=== PATIENT | female | born 1965 | race Two or more races ===

== ENCOUNTER → 2025-04-13 | Outpatient (CLI) | payer MEDICAID, SELFPAY ==
--- NOTE | 2025-04-13 15:23 | XR_ITS ---
Examination: PA lateral chest 2 views TECHNIQUE: Upright PA lateral chest 2 views Date and time: April 13, 2025, 1542 hours, comparison January 28, 2024 INDICATIONS: Shortness of breath beginning one month ago. FINDINGS: Mild heart failure Moderate enlargement cardiac contour. Prominent vascular congestion. Early septal edema at the lung bases with fluid in the fissures on the lateral view IMPRESSION: Early heart failure
== END | disposition home or self-care (01) ==
LOC: SDIM 15:11
PROVIDERS: PCP Specialist; Referring Provider Specialist; Visit Provider Specialist
DX: I50.9 Heart failure, unspecified (principal)
CPT/HCPCS: 71046

== ENCOUNTER 2025-04-14 16:05 | Inpatient (IN) | payer MEDICAID, SELFPAY ==
[2025-04-14 16:05] VITALS: BMI 36.8
[2025-04-14 16:48] VITALS: BP 196/102; BP 199/88; PULSE 87; RESP 20; TEMP 37.1; O2SAT 98
--- NOTE | 2025-04-14 16:52 | EKG_ITS ---
[facility] Test Date: 2025-04-14 Pat Name: BEAN TRUONG Department: Room: - Gender: Female [employer] Director: : [id number] Requested By: Curly Rothman (THIAGO) Order Number: [id number] Reading MD: Curly Rothman (TRUST ADMINISTRATIVE ASSISTANT) Measurements Intervals Haines Rate: 77 P: 30 WA: 147 QRS: 27 QRSD: 79 T: 78 QT: 391 QTc: 443 Interpretive Statements SINUS RHYTHM POSSIBLE RIGHT VENTRICULAR CONDUCTION DELAY [RSR (QR) IN V1/V2] NONSPECIFIC ST & T-WAVE ABNORMALITY Compared to ECG 03/07/2020 11:04:37 T-wave abnormality now present /store/S0/[id number].pdf
--- NOTE | 2025-04-14 16:52 | XR_ITS ---
Examination: PA lateral chest 2 views FINDINGS: Upright PA and lateral chest 2 views Date and time: April 14, 2025, 1722 hours, comparison April 13, 2025 INDICATIONS: Chest pain beginning 2 days ago. FINDINGS: Mild CHF, slightly progressed compared to the prior study Moderate enlargement cardiac contour with prominent vascular congestion and perihilar edema IMPRESSION: Worsening CHF compared with April 13, 2025
--- NOTE | 2025-04-14 16:53 | EDRME_ITS ---
Rapid Medical Screening Exam [facility] Arrival date/time: 04/14/25 16:05 59-year-old female with medical history significant for dialysis presents to the Emergency Department for complaint of shortness of breath Chief Complaint: Shortness of Breath/Dyspnea Vital signs: Vital Signs Temperature 98.8 F 04/14/25 16:48 Pulse Rate 87 04/14/25 16:48 Respiratory Rate 20 04/14/25 16:48 Blood Pressure 196/102 H 04/14/25 16:48 Pulse Oximetry (%) 98 04/14/25 16:48 Oxygen Delivery Method Room Air 04/14/25 16:48
[2025-04-14 18:22] LABS: Basophils # (Auto) 0.1 Thou/mm3 (0.0-0.2); Basophils % (Auto) 1 % (0-2.5); Eosinophils # (Auto) 0.6 Thou/mm3 (0.0-0.5); Eosinophils % (Auto) 8 % (0-10); Hematocrit 32.2 % (36.0-46.0); Hemoglobin 10.7 g/dL (12.0-16.0); Immature Granulocytes Auto 0.04 Thou/mm3 (0.00-0.00); Lymphocytes # (Auto) 1.7 Thou/mm3 (1.0-4.8); Lymphocytes % (Auto) 22 % (10-50); Mean Corpuscular HGB Conc 33.2 g/dl (31.0-37.0); Mean Corpuscular Hemoglobin 32.9 pg (25.0-35.0); Mean Corpuscular Volume 99 fL (80-100); Monocytes # (Auto) 0.5 Thou/mm3 (0.0-0.8); Monocytes % (Auto) 7 % (0-12); Neutrophils # (Auto) 4.7 Thou/mm3 (1.8-7.7); Neutrophils % (Auto) 62 % (37-80); Nucleated Red Blood Cell # 0.04 Thou/mm3 (0.00-0.00); Nucleated Red Blood Cell % 1 /100 WBC (0); Platelet Count 156 Thou/mm3 (140-440); RDW Standard Deviation 46.8 fL (36.4-46.3); Red Blood Count 3.25 Miln/mm3 (4.00-5.20); White Blood Count 7.6 Thou/mm3 (3.6-11.0)
[2025-04-14 18:31] LABS: INR 1.2 (0.9-1.3); Partial Thromboplastin Time 25.6 Seconds (22.0-36.0); Prothrombin Time 12.6 Seconds (9.0-12.2)
[2025-04-14 18:33] LABS: Alanine Aminotransferase 34 U/L (10-49); Albumin, Serum 4.3 gm/dL (3.5-5.0); Albumin/Globulin Ratio 1.4 (1.2-2.2); Alkaline Phosphatase 185 U/L (46-116); Anion Gap 12 (7-16); Aspartate Amino Transferase 33 U/L (0-34); BUN/Creatinine Ratio 6 Ratio (12-20); Bilirubin,Total 0.3 mg/dL (0.3-1.2); Blood Urea Nitrogen 38 mg/dL (9-23); Calcium 10.2 mg/dL (8.3-10.6); Calcium (Corrected) 10.2 mg/dL (8.5-10.1); Carbon Dioxide 27.6 mMol/L (20.0-31.0); Chloride 99 mMol/L (98-107); Creatinine (Component) 6.8 mg/dL (0.6-1.3); Estimated Creatinine Clearance 10.4 mL/min (>60); Globulin 3.1 gm/dL (2.3-3.5); Glucose 161 mg/dL (74-106); Magnesium 2.4 mg/dL (1.6-2.6); Osmolality,Calculated 289 (275-295); Potassium 5.1 mMol/L (3.4-5.1); Sodium 139 mMol/L (136-145); Total Protein 7.4 gm/dL (5.7-8.2); Troponin I 0.020 ng/mL (0.0-0.045); eGFR 7 See Note
[2025-04-14 18:44] LABS: B-Type Natriuretic Peptide 3046 pg/mL (0-100)
--- NOTE | 2025-04-14 21:17 | ECHO_ITS ---
Transthoracic Echo Report Ht (in): 64 Wt (lb): 215 Exam Location: Echo Lab Status: Emergency Shoe Fitter: Kelly Ang Indications: Procedure Performed: BP: 162 / 78 HR: 74 Technical Quality: Poor MEASUREMENTS (Male / Female) Normal Values 2D ECHO LV Diastolic Diameter PLAX 4.9 cm 4.2 - 5.9 / 3.9 - 5.3 cm LV Systolic Diameter PLAX 3.0 cm IVS Diastolic Thickness 0.8 cm 0.6 - 1.0 / 0.6 - 0.9 cm LVPW Diastolic Thickness 1.2 cm 0.6 - 1.0 / 0.6 - 0.9 cm LV Relative Wall Thickness 0.4 LVOT Diameter 1.9 cm Aortic Root Diameter 2.8 cm LV Ejection Fraction MOD BP 65.9 % >= 55 % LV Cardiac Index MOD BP 2413.0 cm?/min?m? LV Ejection Fraction MOD 4C 63.3 % LV Cardiac Index MOD 4C 1933.1 cm?/min?m? LV Ejection Fraction 4C AL 65.2 % LV Cardiac Index 4C AL 2081.3 cm?/min?m? LV Ejection Fraction MOD 2C 64.5 % LV Cardiac Index MOD 2C 2516.5 cm?/min?m? LV Ejection Fraction 2C AL 65.9 % LV Cardiac Index 2C AL 2674.6 cm?/min?m? LA Volume Index 26.7 cm?/m? 16 - 28 cm?/m? Ascending Aorta Diameter 2.6 cm M-MODE Aortic Root Diameter MM 2.3 cm LA Systolic Diameter MM 5.4 cm LA Ao Ratio MM 2.3 AV Cusp Separation MM 1.3 cm DOPPLER AV Peak Velocity 191.0 cm/s AV Peak Gradient 14.6 mmHg AV Mean Gradient 8.0 mmHg AV Velocity Time Integral 42.6 cm LVOT Peak Velocity 93.2 cm/s LVOT Peak Gradient 3.5 mmHg LVOT Velocity Time Integral 20.8 cm LVOT Cardiac Index 2035.8 cm?/min?m? AV Area Cont Eq vti 1.4 cm? AV Area Cont Eq pk 1.4 cm? MV Area PHT 4.9 cm? Mitral E Point Velocity 143.0 cm/s Mitral A Point Velocity 37.9 cm/s Mitral E to A Ratio 3.8 LV E' Lateral Velocity 5.8 cm/s Mitral E to LV E' Lateral Ratio 24.6 LV E' Septal Velocity 4.4 cm/s Mitral E to LV E' Septal Ratio 32.3 TR Peak Velocity 385.5 cm/s TR Peak Gradient 59.4 mmHg PV Peak Velocity 122.0 cm/s PV Peak Gradient 6.0 mmHg FINDINGS Left Ventricle Normal left ventricular size, wall thickness, systolic function with no obvious regional wall motion abnormalities. Normal left ventricular diastolic filling pattern for age. The ejection fraction is visually estimated at 55-60 %. Right Ventricle The right ventricle is normal in size and systolic function. The estimated right ventricular systolic pressure, 45mmHg. RAP 10 Left Atrium The left atrium is normal by two-dimensional, color flow and Doppler imaging with no structural abnormalities, no thrombus formation present. Right Atrium The right atrium is normal by two-dimensional imaging, color flow and Doppler imaging with no structural abnormalities, no thrombus formation present. Atrial Septum The interatrial septum appears normal with no evidence of a shunt. Aorta The aorta is normal by two-dimensional, color flow and Doppler interrogation. Mitral Valve Trace mitral regurgitation. Mild mitral annular calcification. Aortic Valve Sclerosis of the right coronary cusp. Tricuspid Valve The tricuspid valve is normal by two-dimensional, color flow and Doppler interrogation. There is mild to moderate tricuspid valve regurgitation. Pulmonic Valve Trivial pulmonic valve regurgitation. Vessels Less than 50% respiratory change in dimension of the inferior vena cava abnormal. Pericardium The pericardium is normal by two-dimensional imaging. There is no significant pericardial effusion. CONCLUSIONS Indication: Dyspnea Normal LV size and wall thickness. Normal left ventricular diastolic filling pattern for age. Estimated at 55-60 %. The RV is normal in size and systolic function. The estimated RVSP, 45 mmHg. RAP 1 Trace MR. Mild MAC. Sclerosis of the right coronary cusp. No pericardial effusion Mild TR. Trivial PI. Less than 50% respiratory change in dimension of the IVC abnormal. Arline Skaggs (Electronically Signed) Final Date: 17 April 2025 09:03
--- NOTE | 2025-04-14 21:19 | PD.EDSOB ---
ED SOB =RME/HPI General Chief Complaint: Shortness of Breath/Dyspnea Stated Complaint: SENT BY PMD FOR HEART FAILURE Time Seen by Provider: 04/14/25 18:07 Source: patient and family Arrival date/time: 04/14/25 16:05 Mode of arrival: wheelchair Limitations: no limitations RME / HPI RME / HPI Narrative: Patient is a 59-year-old female with a past medical history of ESRD, she has dialysis every Friday, Friday, and Friday. She has not missed any runs. She also has a history of diabetes mellitus, HTN, and asthma. She was admitted here last year for a significant pericardial effusion, 2 L of fluid were drained at that time. Patient had an echo in January 2024 which revealed ejection fraction of 65%- 70% without any significant wall motion abnormalities.. She now presents to the ED with chief complaint of shortness of breath as previously gotten worse for the past 4 weeks. Related Data Home Medications ?Medication ?Instructions ?Recorded ?Confirmed calcium acetate 667 mg tablet 1,334 mg PO TIDWM 03/07/20 01/28/24 ferrous sulfate 325 mg (65 mg 325 mg PO QDAY 01/27/24 01/27/24 iron) tablet (iron) cinacalcet 30 mg tablet 30 mg PO QDAY 01/29/24 01/29/24 ferrous sulfate 325 mg (65 mg 325 mg PO QDAY 01/29/24 01/29/24 iron) tablet hydralazine 25 mg tablet 25 mg PO TID 01/29/24 01/29/24 labetalol 200 mg tablet 200 mg PO BID 01/29/24 01/29/24 losartan 100 mg tablet 100 mg PO QDAY 01/29/24 01/29/24 nifedipine 60 mg tablet,extended 60 mg PO QDAY 01/29/24 01/29/24 release Allergies Allergy/AdvReac Type Severity Reaction Status Date / Time No Known Allergies Allergy Verified 04/14/25 16:07 Review of Systems Review of Systems Systems Reviewed: All systems reviewed, normal except as documented ED Exam General Limitations: Present no limitations General appearance: Present alert and in no apparent distress Head Head exam: Present atraumatic Eye Eye exam: Present normal appearance, PERRL and EOMI ENT ENT exam: Present normal exam, normal oropharynx and mucous membranes moist Neck Neck exam: Present normal inspection, full ROM and trachea midline Chest Chest inspection: Present normal inspection and symmetric chest wall rise Respiratory Respiratory exam: Present normal lung sounds bilaterally Cardiovascular Cardiovascular exam: Present regular rate, normal rhythm and +S2 Abdominal Exam Abdominal exam: Present soft Extremities Exam Extremities exam: Present normal inspection and full ROM; Absent pedal edema Back Exam Back exam: Present normal inspection and full ROM Neurological Exam Neurological exam: Present alert and oriented X3 Psychiatric Psychiatric exam: Present normal affect and normal mood Skin Skin exam: Present warm, dry, intact and normal color Course Quality Measures none Orders Category Date Time Status COVID-19 Screening Questionnaire NOW Care 04/14/25 21:46 Active Decision to Admit X1 Care 04/14/25 21:46 Active EKG (ED ONLY) *Do not use* NOW Care 04/14/25 16:52 Completed CA echo doppler complete Stat Exams 04/14/25 21:17 Ordered EKG (ED Only) Stat Exams 04/14/25 16:52 Draft XR chest 2V Stat Exams 04/14/25 16:52 Completed B-Type Natriuretic Peptide Stat Lab 04/14/25 17:17 Completed CBC Stat Lab 04/14/25 17:17 Completed Comprehensive Metabolic Panel Stat Lab 04/14/25 17:17 Completed Magnesium Stat Lab 04/14/25 17:17 Completed Partial Thromboplastin Time Stat Lab 04/14/25 17:17 Completed Prothrombin Time with INR Stat Lab 04/14/25 17:17 Completed Troponin I Stat Lab 04/14/25 17:17 Completed Morphine Inj Med 04/14/25 21:48 Discontinued 4 mg IVP X1 ONE Nitroglycerin Oint 2% [Nitro-paste Oint 2%] Med 04/14/25 21:48 Discontinued 2 inch TOP X1 ONE hydrALAZINE INJ [Apresoline Inj] Med 04/14/25 21:27 Discontinued 20 mg IVP X1 ONE Vital Signs Vital signs: Vital Signs Temperature 98.8 F 04/14/25 16:48 Pulse Rate 87 04/14/25 16:48 Respiratory Rate 20 04/14/25 16:48 Blood Pressure 196/102 H 04/14/25 16:48 Pulse Oximetry (%) 98 04/14/25 16:48 Oxygen Delivery Method Room Air 04/14/25 16:48 Shortness of Breath / Dyspnea MDM Narrative MDM Narrative:: Dr. Cohen with cardiology was called at approximately 20 1:20 PM. Message was left requesting return call. Patient's long chain quiller tender, Dr. Alas was contacted at 21:30 PM, patient's presentation and test results were discussed. We will admit to medicine and she will follow, consider dialysis tomorrow. Hospitalist was paged and the case was discussed. We are currently working on bringing blood pressure down and I would like to give nitroglycerin however we cannot initiate that in that side of department due to monitoring. We will try to bring her to the main side of the ER and consider nitroglycerin once that is performed. I do believe the patient needs to be admitted to the hospital. Hospitalist services will evaluate her further. Patient data External records reviewed:: None Clinical information provided by:: patient Social determinants that could affect healthcare access:: none Patient has the following chronic illnesses:: End-stage renal disease, CHF, hypertension, diabetes How is presenting disease/condition affected by chronic disease/condition?: no chronic disease Evaluation data The following diagnostics were reviewed and interpreted by me:: lab results, radiology exam(s) and EKG tracing(s) Lab and/or radiology exams considered but not ordered:: n/a Interpretation Summary: n/a Medications / Prescriptions Medications or Prescriptions considered but not ordered:: n/a Medication administrations:: Medication Administration History Acetaminophen (Acetaminophen 325 Mg Tablet) 650 mg PO Q6H PRN PRN Reason: Fever >100.4 or pain 1-3 Stop: 05/14/25 22:15 Albuterol/Ipratropium (Albuterol/Ipratropium (Duoneb) Rt Hiwot 3 Ml Nebu) 3 ml INH Q2HR PRN PRN Reason: SHORTNESS OF BREATH OR WHEEZE Stop: 05/14/25 22:15 Docusate Sodium (Docusate Sod 100 Mg Capsule) 100 mg PO QDAY PRN; Protocol PRN Reason: CONSTIPATION Stop: 05/14/25 22:15 Heparin Sodium (Porcine) (Heparin Sod Inj 5000 Unit/Ml Vial) 5,000 unit SC Q12HR STEPHAN Stop: 04/29/25 08:59 Ondansetron HCl (Ondansetron Inj 2 Mg/Ml Inj 2 Ml) 4 mg IVP Q6H PRN; Protocol PRN Reason: NAUSEA OR VOMITING Stop: 05/14/25 22:15 Last Admin: 04/14/25 23:03 Dose: 4 mg Documented By: ALEXANDER Sennosides (Senna Tablet) 1 tab PO QDAY PRN; Protocol PRN Reason: constipation Stop: 05/14/25 22:15 Tramadol HCl (Tramadol Hcl 50 Mg Tablet) 50 mg PO Q6HR PRN PRN Reason: PAIN SCALE 4-10(Mod-Sev Stop: 04/19/25 22:15 Discontinued Medications Hydralazine HCl (Hydralazine Inj 20 Mg/Ml Vial) 20 mg IVP X1 ONE Stop: 04/14/25 21:28 Morphine Sulfate (Morphine Sulf Inj 10 Mg/Ml Vial) 4 mg IVP X1 ONE Stop: 04/14/25 21:49 Last Admin: 04/14/25 22:29 Dose: 4 mg Documented By: ALEXANDER Nitroglycerin (Nitroglycerin Oint 2% 1 Inch Packet) 2 inch TOP X1 ONE Stop: 04/14/25 21:49 Last Admin: 04/14/25 21:58 Dose: 2 inch Documented By: ALEXANDER Tramadol HCl (Tramadol Hcl 50 Mg Tablet) 50 mg PO Q6HR PRN PRN Reason: PAIN SCALE 4-10(Mod-Sev Stop: 04/19/25 22:15 see above Consultations Consultation(s) initiated? (list below): No Diagnosis Shortness of Breath Differential Diagnosis: acute exacerbation of chronic obstructive airways disease, congestive heart failure, community acquired pneumonia and asthma with exacerbation Most likely diagnosis given after review of the tests above:: CHF, end-stage renal disease Admission Indicated Admission indicated?: indicated Admission Request Was there a request for admission?: Yes Admission Attestation Admission request attestation: Discussed case with [] from Hospitalist service regarding admission. Discussed patients ED course, exam findings, labs, and radiology results. The Hospitalist [agrees,declines] to accept the patient for admission. Disposition Plan Disposition Plan: Admit Discharge Plan Plan Patient Disposition: Admit Acute Care w/in Hospital Problem List Clinical Impression: CHF (congestive heart failure), Renal failure
[2025-04-14 21:58] VITALS: BP 247/118; PULSE 84
[2025-04-14] MEDS: NITROGLYCERIN OINT 2% 1 INCH PACKET 2 INCH TOP (21:58)
[2025-04-14] MEDS: MORPHINE SULF INJ 10 MG/ML VIAL 4 MG IVP (22:29)
[2025-04-14 22:52] VITALS: BP 197/120; PULSE 76; RESP 16; TEMP 36.6; O2SAT 95
[2025-04-14] MEDS: ONDANSETRON INJ 2 MG/ML INJ 2 ML 4 MG IVP (23:03)
[2025-04-14 23:38] VITALS: BP 189/113; PULSE 74
[2025-04-14] MEDS: hydrALAZINE INJ 20 MG/ML VIAL 10 MG IVP (23:38)
[2025-04-14 23:44] VITALS: BMI 39.3
[2025-04-15] VITALS (27 sets, daily range): BP systolic 131–192; BP diastolic 66–94; PULSE 68–869; RESP 14–89; TEMP 36.1–37; O2SAT 91–100; BMI 38.4; BMI 15.0
--- NOTE | 2025-04-15 00:21 | PD.RESHP ---
Documentation for date of: 04/15/25 HPI History of Present Illness Chief complaint: SOB x1 month History of present illness: 59 y/o F with PMHx significant for ESRD (M/W/F), DM, HTN, asthma presents to ED from home with cheif complaint of SOB x1 month. Patient reports that over past month she has had progressive worsening dyspnea on exertion, orthopnea. She also reports that her legs been swelling more frequently. Patient states she had similar symptoms approximately 1 year ago, but presentation to ED was found to have significant pericardial effusion requiring pericardiocentesis. Went to PCP and received chest x-ray, PCP sent patient to ED due to concern of similar presentation. Patient denies fever, chills, chest pain, nausea, vomiting, abdominal pain, dysuria. ED COURSE: Labs significant for: WBC 7.6, hemoglobin 10.7. Potassium 5.1. BNP 3000. Imaging significant for: EKG showing sinus rhythm. Chest x-ray showing vascular congestion with signs of pulmonary edema. Patient received nitroglycerin topical due to significant high blood pressure. SBP consistently > 220. Vitals otherwise stable, patient saturating well on room air. PMH: ESRD, DM, HTN, asthma PSH: Cholecystectomy SH: Denies tobacco or illicit drug use. Reports extremely rare alcohol use. Allergies:?NKDA Medications: Hydralazine, losartan, nifedipine, Lasix Review of Systems Review of Systems Systems Reviewed: All systems reviewed, normal except as documented Past Medical History Past Medical History Comments PMH COMMENT: PMH: ESRD, DM, HTN, asthma PSH: Cholecystectomy SH: Denies tobacco or illicit drug use. Reports extremely rare alcohol use. Allergies:?NKDA Medications: Hydralazine, losartan, nifedipine, Lasix Exam Vital Signs Temp Pulse Resp BP Pulse Ox O2 Del Method 98.6 F 72 17 192/85 H 100 Room Air 04/15/25 00:20 04/15/25 00:20 04/15/25 00:20 04/15/25 00:20 04/15/25 00:20 04/15/25 00:20 Narrative Exam PE: Gen: Well-developed and well-nourished. HEENT: NCAT, PERRLA, EOMI, MMM, anicteric conjunctivae. CVS: normal S1 and S2. RRR. No M/R/G. Resp: CTA B/L. No rhonchi, rales, crackles or wheezing. Abd: soft, non-tender, non-distended. BS+ in all 4 quadrants. MSK: Good ROM in BUE & BLE. No edema or rash. Left upper arm fistula. Neuro: CN II-XII grossly intact. Strength 5/5 in BUE & BLE. Alert and oriented x3. Psych: appropriate mood and affect. Results: Labs 04/14/25 17:17 04/14/25 17:17 Labs: Short CBC 04/14/25 Range/Units 17:17 WBC 7.6 (3.6-11.0) Thou/mm3 Hgb 10.7 L (12.0-16.0) g/dL Hct 32.2 L (36.0-46.0) % Plt Count 156 (140-440) Thou/mm3 BMP 04/14/25 17:17 Sodium 139 Potassium 5.1 Chloride 99 Carbon Dioxide 27.6 BUN 38 H Creatinine 6.8 H* Glucose 161 H Calcium 10.2 Cardiac Enzymes 04/14/25 Range/Units 17:17 Troponin I 0.020 (0.0-0.045) ng/mL Liver Function 04/14/25 Range/Units 17:17 Total Bilirubin 0.3 (0.3-1.2) mg/dL AST 33 (0-34) U/L ALT 34 (10-49) U/L Alkaline Phosphatase 185 H (46-116) U/L Albumin 4.3 (3.5-5.0) gm/dL Quality Measures Quality Measures VTE prophylaxis Medications Home Medications and Allergies Home Medications ?Medication ?Instructions ?Recorded ?Confirmed ?Type calcium acetate 667 mg tablet 1,334 mg PO TIDWM 03/07/20 01/28/24 History ferrous sulfate 325 mg (65 mg 325 mg PO QDAY 01/27/24 01/27/24 History iron) tablet (iron) cinacalcet 30 mg tablet 30 mg PO QDAY 01/29/24 01/29/24 History ferrous sulfate 325 mg (65 mg 325 mg PO QDAY 01/29/24 01/29/24 History iron) tablet hydralazine 25 mg tablet 25 mg PO TID 01/29/24 01/29/24 History labetalol 200 mg tablet 200 mg PO BID 01/29/24 01/29/24 History losartan 100 mg tablet 100 mg PO QDAY 01/29/24 01/29/24 History nifedipine 60 mg tablet,extended 60 mg PO QDAY 01/29/24 01/29/24 History release Allergies Allergy/AdvReac Type Severity Reaction Status Date / Time No Known Allergies Allergy Verified 04/14/25 16:07 Visit Medications Acetaminophen (Acetaminophen 325 Mg Tablet) 650 mg PO Q6H PRN PRN Reason: Fever >100.4 or pain 1-3 Stop: 05/14/25 22:15 Albuterol/Ipratropium (Albuterol/Ipratropium (Duoneb) Rt Hiwot 3 Ml Nebu) 3 ml INH Q2HR PRN PRN Reason: SHORTNESS OF BREATH OR WHEEZE Stop: 05/14/25 22:15 Docusate Sodium (Docusate Sod 100 Mg Capsule) 100 mg PO QDAY PRN; Protocol PRN Reason: CONSTIPATION Stop: 05/14/25 22:15 Heparin Sodium (Porcine) (Heparin Sod Inj 5000 Unit/Ml Vial) 5,000 unit SC Q12HR STEPHAN Stop: 04/29/25 08:59 Ondansetron HCl (Ondansetron Inj 2 Mg/Ml Inj 2 Ml) 4 mg IVP Q6H PRN; Protocol PRN Reason: NAUSEA OR VOMITING Stop: 05/14/25 22:15 Last Admin: 04/14/25 23:03 Dose: 4 mg Sennosides (Senna Tablet) 1 tab PO QDAY PRN; Protocol PRN Reason: constipation Stop: 05/14/25 22:15 Tramadol HCl (Tramadol Hcl 50 Mg Tablet) 50 mg PO Q6HR PRN PRN Reason: PAIN SCALE 4-10(Mod-Sev Stop: 04/19/25 22:15 Discontinued Medications Hydralazine HCl (Hydralazine Inj 20 Mg/Ml Vial) 20 mg IVP X1 ONE Stop: 04/14/25 21:28 Hydralazine HCl (Hydralazine Inj 20 Mg/Ml Vial) 10 mg IVP X1 ONE Stop: 04/14/25 23:33 Last Admin: 04/14/25 23:38 Dose: 10 mg Morphine Sulfate (Morphine Sulf Inj 10 Mg/Ml Vial) 4 mg IVP X1 ONE Stop: 04/14/25 21:49 Last Admin: 04/14/25 22:29 Dose: 4 mg Nitroglycerin (Nitroglycerin Oint 2% 1 Inch Packet) 2 inch TOP X1 ONE Stop: 04/14/25 21:49 Last Admin: 04/14/25 21:58 Dose: 2 inch Tramadol HCl (Tramadol Hcl 50 Mg Tablet) 50 mg PO Q6HR PRN PRN Reason: PAIN SCALE 4-10(Mod-Sev Stop: 04/19/25 22:15 Assessment & Plan Plan 59 y/o F with PMHx significant for ESRD (M/W/F), DM, HTN, asthma presents to ED from home with cheif complaint of SOB x1 month, admitted for new onset CHF versus pericardial effusion. #Progressive worsening shortness of breath #New onset CHF versus pericardial effusion Patient has had progressive worsening shortness of breath, dyspnea on exertion, orthopnea x 1 month. Patient also notes her legs have been swelling more frequently. On exam patient saturating well on room air. Patient was laid flat, continued to saturate well during exam. No JVD, no edema, no crackles on auscultation. Chest x-ray shows vascular congestion with pulmonary edema. BNP 3200. - Cardiology consulted, appreciate recommendations - Echo ordered, follow-up - Telemonitoring with O2 saturations - PT eval #Hypertensive emergency #Hypertension Patient history as stated. In ED, patient blood pressure consistently greater than 200 systolic. Highest BP 247/118. Patient took nitro, 20 mg hydralazine, plus additional 10 mg hydralazine. Patient complains of shortness of breath, BNP elevated at 3200. Chest x-ray showing basilar congestion with pulmonary edema. After hydralazine, patient's blood pressure decreased to 187/94. - Hold home antihypertensives given rapid decrease in blood pressure - Monitor blood pressure, goal 25% reduction in 24 hours - Resume home medication when appropriate #ESRD (M/W/F) Patient history as stated. Patient with compliant with all dialysis sessions. Follows with toll testboard worker Dr Rizo. - Nephrology consulted for management of dialysis - Dialysis per patient's usual schedule - Renally dose meds as appropriate #Asthma Patient has history of asthma, not currently on active treatment - DuoNebs as needed #DM, unconfirmed Patient has history of diabetes per chart review, not currently on active medication. A1c 5.4 as of 01/28/2024. - A1c ordered, follow-up - Initiate ISS if appropriate DVT prophylaxis: Heparin GI prophylaxis: None Diet: Cardiac/renal Lines: Peripheral IV Code status: DNR/DNI Plan of care discussed with attending Dr. Brennan. Marcos Portillo MD PGY?2 Attending Provider Attestation/Addendum I have examined the patient, reviewed labs and imaging findings, discussed the case with the resident(s), and reviewed entered orders. I agree with the plan of care as outlined in this note, with these additional summaries/recommendations: After examination of the patient and review of the clinical data, I feel that this patient needs admission to the hospital for further treatment and evaluation. Patient is a 59-year-old female with a medical history of end-stage renal disease on hemodialysis via LUE AV fistula, diabetes mellitus type 2, primary hypertension, asthma, dyslipidemia, AOCD, and pericardial effusion presents to [facility] emergency department on 04/14/2025 with chief complaint of shortness of breath. Patient and patient's daughter seen at bedside. Patient endorses worsening shortness of breath for 1 month and has became so severe she decided to come to the emergency room. Chest x-ray shows moderate enlargement of cardiac contour with prominent vascular congestion and perihilar edema. BNP 3046. Trace lower extremity edema. Patient diagnosed with fluid overload most likely secondary to new onset CHF versus return of pericardial effusion versus ESRD versus hypertensive emergency versus least likely asthma exacerbation. Patient follows cardiology Dr. Diana. Consult in-house cardiology, recommendations appreciated. Order transthoracic echocardiogram. Weight 97.522. Fluid restriction. Strict I's and O's. Per patient she makes minimal urine and we will initiate inpatient hemodialysis for preload reduction. Patient does have a history of a pericardial effusion and had approximately 2 L of serosanguineous fluid drained on prior admission. Fluid analysis revealed transudative effusion most likely secondary to ESRD. If echocardiogram confirms recurrence of pericardial effusion then she may require pericardial drain or possibly evaluation for pericardial window. No evidence of cardiac tamponade at this time. Consult in-house nephrology, recommendations appreciated. If echocardiogram confirms CHF then we will initiate goal-directed medical therapy. Patient also diagnosed with hypertensive urgency/emergency. Unclear if shortness of breath is from blood pressure at this time. Still awaiting home medication reconciliation although patient only appears to be taking ramipril. Troponin WNL. As needed IV antihypertensives. We will continue to adjust antihypertensive regimen as needed. Home MDIs and nebulized albuterol as needed for history of asthma. Start insulin sliding scale for diabetes mellitus type 2 with Accu-Cheks. Order A1c. Target blood sugar of 140-180 while hospitalized. Patient has history of anemia of chronic disease and appears at baseline. Patient's daughter reports patient has had intermittent dysphagia for years although has not yet seek referral to gastroenterology. We will monitor how patient does on diet. Okay to resume home hydroxyzine for anxiety as needed. Patient and patient's daughter updated on the plan. All questions answered to satisfaction. Please see residents note for additional details and management. Dr. Anu MD
[2025-04-15] MEDS: ACETAMINOPHEN 325 MG TABLET 650 MG PO ×2 (00:55→10:01)
--- NOTE | 2025-04-15 03:02 | PC.NURSE ---
Dr. Portillo notified regarding patient regarding patient now wanting to be a full code and not a DNR. stated he is doing an admission but would try to come up to talk to the patient but if he does not make it, he will let the day team know. This RN will follow up soon about the code status change that patient is requesting. Dr. Portillo also notified regarding blood sugar of 212; he said he would put something in. This RN also updated him on oxygen saturation between 89-91% and now at 98% on 2 liters of oxgyen via nasal cannula and the need for an order.
[2025-04-15] MEDS: INSULIN LISPRO (AdmeLOG) 1 UNIT/0.01 ML UNIT SC ×3 (03:49→17:01)
[2025-04-15 06:08] LABS: Basophils # (Auto) 0.0 Thou/mm3 (0.0-0.2); Basophils % (Auto) 0 % (0-2.5); Eosinophils # (Auto) 0.6 Thou/mm3 (0.0-0.5); Eosinophils % (Auto) 7 % (0-10); Hematocrit 29.6 % (36.0-46.0); Hemoglobin 9.7 g/dL (12.0-16.0); Immature Granulocytes Auto 0.04 Thou/mm3 (0.00-0.00); Lymphocytes # (Auto) 1.3 Thou/mm3 (1.0-4.8); Lymphocytes % (Auto) 15 % (10-50); Mean Corpuscular HGB Conc 32.8 g/dl (31.0-37.0); Mean Corpuscular Hemoglobin 32.4 pg (25.0-35.0); Mean Corpuscular Volume 99 fL (80-100); Monocytes # (Auto) 0.5 Thou/mm3 (0.0-0.8); Monocytes % (Auto) 6 % (0-12); Neutrophils # (Auto) 6.0 Thou/mm3 (1.8-7.7); Neutrophils % (Auto) 71 % (37-80); Nucleated Red Blood Cell # 0.00 Thou/mm3 (0.00-0.00); Nucleated Red Blood Cell % 0 /100 WBC (0); Platelet Count 131 Thou/mm3 (140-440); RDW Standard Deviation 47.0 fL (36.4-46.3); Red Blood Count 2.99 Miln/mm3 (4.00-5.20); White Blood Count 8.4 Thou/mm3 (3.6-11.0)
[2025-04-15 06:41] LABS: INR 1.2 (0.9-1.3); Partial Thromboplastin Time 23.3 Seconds (22.0-36.0); Prothrombin Time 12.6 Seconds (9.0-12.2)
[2025-04-15 06:44] LABS: Glucose Estimated Average 157 mg/dL (80-131); Hemoglobin A1C 7.1 % Hgb (4.8-6.0)
[2025-04-15 07:11] LABS: Alanine Aminotransferase 36 U/L (10-49); Albumin, Serum 4.0 gm/dL (3.5-5.0); Albumin/Globulin Ratio 1.2 (1.2-2.2); Alkaline Phosphatase 170 U/L (46-116); Anion Gap 14 (7-16); Aspartate Amino Transferase 32 U/L (0-34); BUN/Creatinine Ratio 6 Ratio (12-20); Bilirubin,Total 0.3 mg/dL (0.3-1.2); Blood Urea Nitrogen 49 mg/dL (9-23); Calcium 9.7 mg/dL (8.3-10.6); Calcium (Corrected) 9.7 mg/dL (8.5-10.1); Carbon Dioxide 25.7 mMol/L (20.0-31.0); Chloride 98 mMol/L (98-107); Creatinine (Component) 7.8 mg/dL (0.6-1.3); Estimated Creatinine Clearance 8.2 mL/min (>60); Globulin 3.4 gm/dL (2.3-3.5); Glucose 196 mg/dL (74-106); Magnesium 2.7 mg/dL (1.6-2.6); Osmolality,Calculated 293 (275-295); Phosphorous 5.9 mg/dL (2.4-5.1); Potassium 5.2 mMol/L (3.4-5.1); Sodium 138 mMol/L (136-145); Thyroid Stimulating Hormone 3.14 uIU/mL (0.55-4.78); Total Protein 7.4 gm/dL (5.7-8.2); eGFR 6 See Note
[2025-04-15 07:23] LABS: Cardiac Risk Estimate 2.3 RATIO (3.7-5.6); Cholesterol 139 mg/dL (132-200); HDL Cholesterol 61 mg/dL (40-60); LDL Cholesterol,Calculated 63 mg/dL (0-130); Triglycerides 74 mg/dL (30-150)
[2025-04-15] MEDS: ALBUTEROL/IPRATROPIUM (Duoneb) RT SOL 3 ML NEBU INH (07:38)
--- NOTE | 2025-04-15 07:40 | PC.NURSE ---
NOTIFIED MD HUDSON OVER THE PHONE OF PTS VERBAL DESIRE TO BE A FULL CODE PER MD WILL CONT WITH PTS DECISION AND FULL CODE STATUS WILL BE UPDATED.
[2025-04-15] MEDS: HEPARIN SOD INJ 5000 UNIT/ML VIAL SC ×2 (08:13→21:42)
--- NOTE | 2025-04-15 08:14 | PC.NURSE ---
DURING REPORT NOTIFIED FAMILY THERE IS A NEED FOR MED RECC PER DAUGHTER THEY WILL BRING IT IN TODAY
--- NOTE | 2025-04-15 08:43 | PC.NURSE ---
Confirmed with MD Hannah in regards to pts dialysis plan for today. Per MD will f/u with nephro and verify.
--- NOTE | 2025-04-15 10:14 | CHAP ---
Patient expressed gratitude for visit and prayer.
--- NOTE | 2025-04-15 15:31 | ESPR_ITS ---
<Statement entered by Barby Corea MD - 04/16/25 15:17> I have reviewed the note and agree with the resident's assessment & plan with exceptions as below. I have personally reviewed labs, imaging, home meds/prior records, examined the patient, formulated and discussed management plan with the IM team. Patient examined bedside today. Continuing to adjust and augment patient's blood pressure slowly, added some home blood pressure medicines. Patient's headache is resolved. Continuing hemodialysis, nephrology on consult. Expect discharge in the next 24 to 48 hours. Hematology and chemistry in AM. Barby Corea, PGY-2 Internal Medicine Documentation for date of: 04/15/25 Subjective Subjective Interval history: No acute events overnight. Patient seen and examined at bedside with daughter present. Vitals and labs reviewed. Patient states her head felt numb/uncomfortable, not like a normal headache though; stated the light in the room hurt her eyes a little bit, had her eyes closed. Patient denies fever, chest pain, shortness of breath Exam Vital Signs Temp Pulse Resp BP Pulse Ox O2 Del Method O2 Flow Rate 97.7 F 71 18 181/88 H 94 L Room Air 2 04/15/25 12:05 04/15/25 15:00 04/15/25 12:05 04/15/25 15:00 04/15/25 12:05 04/15/25 08:00 04/15/25 03:37 Narrative Exam General: No acute distress; A&Ox3 Skin: Warm, dry, intact, no obvious rash. HENT: NCAT, EOMI, not icteric. External ears normal. No rhinorrhea. Moist mucous membranes Cardiovascular: Regular rate and rhythm, no murmur, +S1/S2. Respiratory: Lungs CTAB GI: Soft, nontender, non-distended. No guarding or rebound tenderness. Extremities: Left arm AV fistula; no edema, no cyanosis, no clubbing. Extremity pulses present Neuro: No focal deficits observed. Conversant, moving all extremities. No overt cerebellar signs/incoordination. Psychiatric: Cooperative, appropriate affect. Objective Labs 04/16/25 06:31 04/16/25 06:31 Labs: Laboratory Results - last 24 hr 04/14/25 04/15/25 17:17 04:52 WBC 7.6 8.4 RBC 3.25 L 2.99 L Hgb 10.7 L 9.7 L Hct 32.2 L 29.6 L MCV 99 99 MCH 32.9 32.4 MCHC 33.2 32.8 RDW Std Deviation 46.8 H 47.0 H Plt Count 156 131 L Neut % (Auto) 62 71 Lymph % (Auto) 22 15 Real % (Auto) 7 6 Eos % (Auto) 8 7 Baso % (Auto) 1 0 Neut # (Auto) 4.7 6.0 Lymph # (Auto) 1.7 1.3 Real # (Auto) 0.5 0.5 Eos # (Auto) 0.6 H 0.6 H Baso # (Auto) 0.1 0.0 Immature Gran # (Auto) 0.04 H 0.04 H Absolute Nucleated RBC 0.04 H 0.00 Immature Gran % 1 H 1 H Nucleated RBC % 1 H 0 PT 12.6 H 12.6 H INR 1.2 1.2 APTT 25.6 23.3 Sodium 139 138 Potassium 5.1 5.2 H Chloride 99 98 Carbon Dioxide 27.6 25.7 Anion Gap 12 14 BUN 38 H 49 H Creatinine 6.8 H* 7.8 H* D Estim Creat Clear Calc 10.4 L 8.2 L eGFR 7 L* 6 L* BUN/Creatinine Ratio 6 L 6 L Glucose [address] Glu mg/dL 157 H Hemoglobin A1c 7.1 H Calculated Osmolality 289 293 Calcium 10.2 9.7 Corrected Calcium 10.2 H 9.7 Phosphorus 5.9 H Magnesium 2.4 2.7 H Total Bilirubin 0.3 0.3 AST 33 32 ALT 34 36 Alkaline Phosphatase 185 H 170 H Troponin I 0.020 B-Natriuretic Peptide 3046 H* Total Protein 7.4 7.4 Albumin 4.3 4.0 Globulin 3.1 3.4 Albumin/Globulin Ratio 1.4 1.2 Triglycerides 74 Cholesterol 139 LDL Cholesterol, Calc 63 HDL Cholesterol 61 H Cholesterol/HDL Ratio 2.3 L TSH 3.14 Quality Measures Quality Measures VTE prophylaxis Assessment & Plan Assessment Current Active Medications: Generic Name Dose Route Start Last Admin Trade Name Freq PRN Reason Stop Dose Admin Acetaminophen 650 mg 04/14/25 22:16 04/15/25 10:01 Acetaminophen 325 Mg Tablet PO 05/14/25 22:15 650 mg Q6H PRN Administration Fever >100.4 or pain 1-3 Albuterol/Ipratropium 3 ml 04/14/25 22:16 04/15/25 07:38 Albuterol/Ipratropium (Duoneb) Rt Hiwot 3 Ml Nebu INH 05/14/25 22:15 3 ml Q2HR PRN Administration SHORTNESS OF BREATH OR WHEEZE Dextrose 25 ml 04/15/25 03:38 Dextrose 50%-Water Inj 50 Ml Syringe IV 05/15/25 03:37 Q15MIN PRN BG 50-70 responsive npo pt Dextrose 50 ml 04/15/25 03:38 Dextrose 50%-Water Inj 50 Ml Syringe IV 05/15/25 03:37 Q15MIN PRN BG <50 OR BG <70 & pt unresponsive Docusate Sodium 100 mg 04/14/25 22:16 Docusate Sod 100 Mg Capsule PO 05/14/25 22:15 QDAY PRN CONSTIPATION Protocol Glucagon 1 mg 04/15/25 03:38 Glucagon Inj 1 Mg Vial IM Q15MIN PRN BG <70, and no IV access Heparin Sodium (Porcine) 5,000 unit 04/15/25 09:00 04/15/25 08:13 Heparin Sod Inj 5000 Unit/Ml Vial SC 04/29/25 08:59 5,000 unit Q12HR STEPHAN Administration Insulin Human Lispro 0 unit 04/15/25 03:45 04/15/25 11:52 Insulin Lispro (Admelog) 1 Unit/0.01 Ml Unit SC 05/15/25 03:44 1 unit ACHS STEPHAN Administration Protocol Ondansetron HCl 4 mg 04/14/25 22:16 04/14/25 23:03 Ondansetron Inj 2 Mg/Ml Inj 2 Ml IVP 05/14/25 22:15 4 mg Q6H PRN Administration NAUSEA OR VOMITING Protocol Sennosides 1 tab 04/14/25 22:16 Senna Tablet PO 05/14/25 22:15 QDAY PRN constipation Protocol Tramadol HCl 50 mg 04/14/25 22:52 04/15/25 14:32 Tramadol Hcl 50 Mg Tablet PO 04/19/25 22:15 50 mg Q6HR PRN Administration PAIN SCALE 4-10(Mod-Sev Plan 59 y/o F with PMHx significant for ESRD (M/W/F), DM, HTN, asthma presents to ED from home with cheif complaint of SOB x1 month, admitted for new onset CHF versus pericardial effusion. #Progressive worsening shortness of breath #New onset CHF versus pericardial effusion Patient has had progressive worsening shortness of breath, dyspnea on exertion, orthopnea x 1 month. Patient also notes her legs have been swelling more frequently. On exam patient saturating well on room air. Patient was laid flat, continued to saturate well during exam. No JVD, no edema, no crackles on auscultation. Chest x-ray shows vascular congestion with pulmonary edema. BNP 3200. - Cardiology consulted, appreciate recommendations - Echo ordered, follow-up - Telemonitoring with O2 saturations - PT eval #Hypertensive emergency #Hypertension Patient history as stated. In ED, patient blood pressure consistently greater than 200 systolic. Highest BP 247/118. Patient took nitro, 20 mg hydralazine, plus additional 10 mg hydralazine. Patient complains of shortness of breath, BNP elevated at 3200. Chest x-ray showing basilar congestion with pulmonary edema. After hydralazine, patient's blood pressure decreased to 187/94. - Hold home antihypertensives given rapid decrease in blood pressure - Monitor blood pressure, goal 25% reduction in 24 hours - Resume home medication when appropriate #ESRD (M/W/F) Patient history as stated. Patient with compliant with all dialysis sessions. Follows with lacquer coater Dr Rizo. - Nephrology consulted for management of dialysis, appreciate recommendations - HD today planned, Dialysis per patient's usual schedule - Renally dose meds as appropriate #Asthma Patient has history of asthma, not currently on active treatment - DuoNebs as needed #DM, unconfirmed Patient has history of diabetes per chart review, not currently on active medication. A1c 5.4 as of 01/28/2024. A1c done on admission: 7.1 - Initiate ISS if appropriate DVT prophylaxis: Heparin GI prophylaxis: None Diet: Cardiac/renal Lines: Peripheral IV Code status: FULL CODE Attending Provider Attestation/Addendum I have discussed and was present for the essential components of the history, physical examination, diagnosis, and treatment plan with the resident. I agree with the patient's care as documented by the resident and amended herein by me. Dennis Bull DO. Although this document has been carefully reviewed, there may still be some phonetic and other typographical errors. These errors are purely grammatical due to imperfections in the software program and should not be construed in any way to compromise the substance of the patient's medical care during this visit.
--- NOTE | 2025-04-15 16:03 | PC.SS ---
rounding note: Patient pending echo and cardio recs. Patient is on regular scheduled hemodialysis. PT called and recommended home health services.
--- NOTE | 2025-04-15 16:17 | PC.NURSE ---
Called Dr. Corea regarding patient's bp after dialysis, 180/69, doctor said its within normal limits regarding her dialysis situation. put in oders for Bp medications but said to hold them for now.
--- NOTE | 2025-04-15 17:13 | ESCONSULT_ITS ---
<Statement entered by Jensen Gastelum MD - 04/16/25 16:22> I personally examined evaluated this patient with resident physician Dr. Jorge Fang PGY1 patient is fairly well now actually has had some shortness of breath question of pericardial effusion I evaluated the patient and bedside echo showed no evidence pericardial effusion normal ejection fractions patient appears to be stable to be discharged other problems are stable. HPI Data of Consult Requesting Physician: Tom Brennan MD Admitting Provider: Tom Brennan MD Attending Provider: Tom Brennan MD Primary Care Provider: Daily Adams PA-C Consult Narrative History of present illness: 59-year-old female with a PMH of ESRD on dialysis 3 times a week diabetes, hypertension, asthma presented to the ED on 04/15/2025 with shortness of breath for the past month. She reported that over the past month she has had progressively worsening dyspnea on exertion and orthopnea. She also reported increased frequency of leg swelling. She also stated that she had similar symptoms about a year ago, during that time she had a pericardial effusion that required drainage. She went to her PCP and got a chest x-ray and her PCP sent her to the ED due to concern of similar presentation from a year ago. On presentation she denied fever chills chest pain nausea vomiting shortness of breath abdominal pain or dysuria. ED COURSE: Labs significant for: WBC 7.6, hemoglobin 10.7. Potassium 5.1. BNP 3000. Imaging significant for: EKG showing sinus rhythm. Chest x-ray showing vascular congestion with signs of pulmonary edema. Patient received nitroglycerin topical due to significant high blood pressure. SBP consistently > 220. Vitals otherwise stable, patient saturating well on room air. PMH: ESRD, DM, HTN, asthma PSH: Cholecystectomy SH: Denies tobacco or illicit drug use. Reports extremely rare alcohol use. Allergies:?NKDA Medications: Hydralazine, losartan, nifedipine, Lasix Home medications: Calcium Cinacalcet Ferrous sulfate Hydralazine Labetalol Losartan Nifedipine Reason for consult The cardiology team was consulted for management of the patient's CHF and possible pericardial effusion. cc:: cc: Tom Brennan MD Review of Systems Review of Systems Narrative Review of Systems: Review of Systems: * General: Denies fevers, chills. * HEENT: Denies headache, congestion, or sore throat. * Cardiac: Denies chest pain or palpitations. * Pulmonary: Denies shortness of breath or cough. * GI: Denies nausea, vomiting, diarrhea, constipation, melena, or hematochezia. * : Denies dysuria, hematuria, frequency, or urgency. * MSK: Denies pain in the extremities, joints, or myalgias. * Neuro: Denies weakness, numbness, vision changes, or speech difficulty. Exam Vital Signs Temp Pulse Resp BP Pulse Ox O2 Del Method O2 Flow Rate 97.7 F 72 18 165/79 H 94 L Room Air 2 04/15/25 12:05 04/15/25 16:00 04/15/25 12:05 04/15/25 15:21 04/15/25 12:05 04/15/25 08:00 04/15/25 03:37 Narrative Exam General: Obese lady. Awake and in no acute distress. Conversational. Neurologic: GCS 15. Alert and oriented x3, no gross neurological deficit, and patient able to move all 4 extremities. HEENT: Normocephalic, atraumatic, mucous membranes moist. Pupils reactive to light. Heart: Regular rate and rhythm, normal S1 and S2, no murmurs. Lungs: Clear to auscultation bilaterally with no wheezing or crackles. Abdomen: Soft, nondistended, nontender, positive bowel sounds. No guarding or rebound tenderness. Extremities: Left upper arm fistula. No edema. 2+ radial and dorsalis pedis pulses bilaterally. Skin: Warm. Dry. No rash or ecchymoses. Results Labs 04/15/25 04:52 04/15/25 04:52 Labs: Short CBC 04/14/25 04/15/25 Range/Units 17:17 04:52 WBC 7.6 8.4 (3.6-11.0) Thou/mm3 Hgb 10.7 L 9.7 L (12.0-16.0) g/dL Hct 32.2 L 29.6 L (36.0-46.0) % Plt Count 156 131 L (140-440) Thou/mm3 BMP 04/14/25 04/15/25 17:17 04:52 Sodium 139 138 Potassium 5.1 5.2 H Chloride 99 98 Carbon Dioxide 27.6 25.7 BUN 38 H 49 H Creatinine 6.8 H* 7.8 H* D Glucose 161 H 196 H Calcium 10.2 9.7 Cardiac Enzymes 04/14/25 Range/Units 17:17 Troponin I 0.020 (0.0-0.045) ng/mL Liver Function 04/14/25 04/15/25 Range/Units 17:17 04:52 Total Bilirubin 0.3 0.3 (0.3-1.2) mg/dL AST 33 32 (0-34) U/L ALT 34 36 (10-49) U/L Alkaline Phosphatase 185 H 170 H (46-116) U/L Albumin 4.3 4.0 (3.5-5.0) gm/dL Quality Measures Quality Measures VTE prophylaxis Medications Home Medications and Allergies Home Medications ?Medication ?Instructions ?Recorded ?Confirmed ?Type calcium acetate 667 mg tablet 1,334 mg PO TIDWM 04/15/25 History ferrous sulfate 325 mg (65 mg 325 mg PO QDAY 01/27/24 04/15/25 History iron) tablet (iron) cinacalcet 30 mg tablet 30 mg PO QDAY 01/29/2404/15 History ferrous sulfate 325 mg (65 mg 325 mg PO QDAY 01/29/24 04/15/25 History iron) tablet hydralazine 25 mg tablet 25 mg PO TID 01/29/24 History labetalol 200 mg tablet 200 mg PO BID 01/29/2404/15 History losartan 100 mg tablet 100 mg PO QDAY 01/29/2403/26 History nifedipine 60 mg tablet,extended 60 mg PO QDAY 4 04/15/25 History release Allergies Allergy/AdvReac Type Severity Reaction Status Date / Time No Known Allergies Allergy Verified 04/14/25 16:07 Visit Medications Acetaminophen (Acetaminophen 325 Mg Tablet) 650 mg PO Q6H PRN PRN Reason: Fever >100.4 or pain 1-3 Stop: 05/14/25 22:15 Last Admin: 04/15/25 10:01 Dose: 650 mg Albuterol/Ipratropium (Albuterol/Ipratropium (Duoneb) Rt Hiwot 3 Ml Nebu) 3 ml INH Q2HR PRN PRN Reason: SHORTNESS OF BREATH OR WHEEZE Stop: 05/14/25 22:15 Last Admin: 04/15/25 07:38 Dose: 3 ml Dextrose (Dextrose 50%-Water Inj 50 Ml Syringe) 25 ml IV Q15MIN PRN PRN Reason: BG 50-70 responsive npo pt Stop: 05/15/25 03:37 Dextrose (Dextrose 50%-Water Inj 50 Ml Syringe) 50 ml IV Q15MIN PRN PRN Reason: BG <50 OR BG <70 & pt unresponsive Stop: 05/15/25 03:37 Docusate Sodium (Docusate Sod 100 Mg Capsule) 100 mg PO QDAY PRN; Protocol PRN Reason: CONSTIPATION Stop: 05/14/25 22:15 Glucagon (Glucagon Inj 1 Mg Vial) 1 mg IM Q15MIN PRN PRN Reason: BG <70, and no IV access Heparin Sodium (Porcine) (Heparin Sod Inj 5000 Unit/Ml Vial) 5,000 unit SC Q12HR STEPHAN Stop: 04/29/25 08:59 Last Admin: 04/15/25 08:13 Dose: 5,000 unit Hydralazine HCl (Hydralazine Hcl 25 Mg Tablet) 25 mg PO TID STEPHAN Stop: 05/15/25 16:14 Last Admin: 04/15/25 16:16 Dose: Not Given Insulin Human Lispro (Insulin Lispro (Admelog) 1 Unit/0.01 Ml Unit) 0 unit SC [facility]; Protocol Stop: 05/15/25 03:44 Last Admin: 04/15/25 17:01 Dose: 1 unit Labetalol HCl (Labetalol Inj 5 Mg/Ml Vial 20 Ml) 10 mg IVP Q2H PRN PRN Reason: SBP above or equal to 180 Stop: 05/15/25 16:14 Ondansetron HCl (Ondansetron Inj 2 Mg/Ml Inj 2 Ml) 4 mg IVP Q6H PRN; Protocol PRN Reason: NAUSEA OR VOMITING Stop: 05/14/25 22:15 Last Admin: 04/14/25 23:03 Dose: 4 mg Sennosides (Senna Tablet) 1 tab PO QDAY PRN; Protocol PRN Reason: constipation Stop: 05/14/25 22:15 Tramadol HCl (Tramadol Hcl 50 Mg Tablet) 50 mg PO Q6HR PRN PRN Reason: PAIN SCALE 4-10(Mod-Sev Stop: 04/19/25 22:15 Last Admin: 04/15/25 14:32 Dose: 50 mg Discontinued Medications Hydralazine HCl (Hydralazine Inj 20 Mg/Ml Vial) 20 mg IVP X1 ONE Stop: 04/14/25 21:28 Last Admin: 04/15/25 00:43 Dose: Not Given Hydralazine HCl (Hydralazine Inj 20 Mg/Ml Vial) 10 mg IVP X1 ONE Stop: 04/14/25 23:33 Last Admin: 04/14/25 23:38 Dose: 10 mg Insulin Human Lispro (Insulin Lispro (Admelog) 1 Unit/0.01 Ml Unit) 0 unit SC AC STEPHAN; Protocol Stop: 05/15/25 07:29 Morphine Sulfate (Morphine Sulf Inj 10 Mg/Ml Vial) 4 mg IVP X1 ONE Stop: 04/14/25 21:49 Last Admin: 04/14/25 22:29 Dose: 4 mg Nitroglycerin (Nitroglycerin Oint 2% 1 Inch Packet) 2 inch TOP X1 ONE Stop: 04/14/25 21:49 Last Admin: 04/14/25 21:58 Dose: 2 inch Tramadol HCl (Tramadol Hcl 50 Mg Tablet) 50 mg PO Q6HR PRN PRN Reason: PAIN SCALE 4-10(Mod-Sev Stop: 04/19/25 22:15 Assessment & Plan Plan 59-year-old female with a PMH of ESRD on dialysis 3 times a week diabetes, hypertension, asthma presented to the ED on 04/15/2025 with shortness of breath for the past month. Cardiology was consulted for management of the patient's pericardial effusion evidenced by x-ray. #Shortness of breath #CHF #Possible pericardial effusion * Patient was suspected of having a pericardial effusion due to x-ray and history of pericardiocentesis 1 year ago * She presented with similar symptoms that she had a year ago when she had a pericardial effusion * The cardiology team performed a bedside ultrasound, patient was negative for pericardial effusion * The patient appears to not be in heart failure from a clinical standpoint, she denies shortness of breath * The patient's BNP is elevated however this is chronic Plan: * Pericardiocentesis not indicated at this time * Continue hemodialysis per primary team #Hypertensive emergency #Hypertension #ESRD on dialysis #Asthma #Diabetes The remainder the patient's hospital problems will be managed per the primary team. Patient seen and discussed with my attending physician Dr. Nirav Fang DO PGY-1
[2025-04-16] VITALS (14 sets, daily range): BP systolic 162–192; BP diastolic 78–98; PULSE 71–83; RESP 15–20; TEMP 36–36.8; O2SAT 95–100; BMI 37.6
[2025-04-16 06:59] LABS: Basophils # (Auto) 0.0 Thou/mm3 (0.0-0.2); Basophils % (Auto) 0 % (0-2.5); Eosinophils # (Auto) 0.6 Thou/mm3 (0.0-0.5); Eosinophils % (Auto) 8 % (0-10); Hematocrit 29.7 % (36.0-46.0); Hemoglobin 9.6 g/dL (12.0-16.0); Immature Granulocytes Auto 0.04 Thou/mm3 (0.00-0.00); Lymphocytes # (Auto) 1.7 Thou/mm3 (1.0-4.8); Lymphocytes % (Auto) 20 % (10-50); Mean Corpuscular HGB Conc 32.3 g/dl (31.0-37.0); Mean Corpuscular Hemoglobin 32.2 pg (25.0-35.0); Mean Corpuscular Volume 100 fL (80-100); Monocytes # (Auto) 0.7 Thou/mm3 (0.0-0.8); Monocytes % (Auto) 8 % (0-12); Neutrophils # (Auto) 5.4 Thou/mm3 (1.8-7.7); Neutrophils % (Auto) 64 % (37-80); Nucleated Red Blood Cell # 0.05 Thou/mm3 (0.00-0.00); Nucleated Red Blood Cell % 1 /100 WBC (0); Platelet Count 158 Thou/mm3 (140-440); RDW Standard Deviation 47.2 fL (36.4-46.3); Red Blood Count 2.98 Miln/mm3 (4.00-5.20); White Blood Count 8.5 Thou/mm3 (3.6-11.0)
[2025-04-16 07:46] LABS: Alanine Aminotransferase 28 U/L (10-49); Albumin, Serum 4.0 gm/dL (3.5-5.0); Albumin/Globulin Ratio 1.3 (1.2-2.2); Alkaline Phosphatase 160 U/L (46-116); Anion Gap 12 (7-16); Aspartate Amino Transferase 22 U/L (0-34); BUN/Creatinine Ratio 5 Ratio (12-20); Bilirubin,Total 0.3 mg/dL (0.3-1.2); Blood Urea Nitrogen 30 mg/dL (9-23); Calcium 9.4 mg/dL (8.3-10.6); Calcium (Corrected) 9.4 mg/dL (8.5-10.1); Carbon Dioxide 26.9 mMol/L (20.0-31.0); Chloride 98 mMol/L (98-107); Creatinine (Component) 6.4 mg/dL (0.6-1.3); Estimated Creatinine Clearance 10.0 mL/min (>60); Globulin 3.2 gm/dL (2.3-3.5); Glucose 100 mg/dL (74-106); Magnesium 2.3 mg/dL (1.6-2.6); Osmolality,Calculated 280 (275-295); Phosphorous 5.6 mg/dL (2.4-5.1); Potassium 4.9 mMol/L (3.4-5.1); Sodium 137 mMol/L (136-145); Total Protein 7.2 gm/dL (5.7-8.2); eGFR 7 See Note
[2025-04-16] MEDS: HEPARIN SOD INJ 5000 UNIT/ML VIAL SC (08:54)
[2025-04-16] MEDS: LABETALOL 100 MG TABLET 200 MG PO (11:21)
[2025-04-16] MEDS: LOSARTAN POTASSIUM 25 MG TABLET 100 MG PO (11:21)
[2025-04-16] MEDS: INSULIN LISPRO (AdmeLOG) 1 UNIT/0.01 ML UNIT SC ×2 (11:29→17:17)
[2025-04-16] MEDS: NIFEdipine XL 30 MG TABCR 60 MG PO (14:45)
--- NOTE | 2025-04-16 15:15 | PD.RESDS ---
Planned Discharge Date 04/16/25 DS: Providers Provider Date of admission: 04/14/25 22:16 Primary care physician: Daily Adams PA-C Admitting Provider: Tom Brennan MD Attending Provider on Admission: Tom Brennan MD Consults: 04/14/25 22:23 Consult to Nephrology Routine Comment: Consulting Provider: Paty Rizo 04/14/25 22:26 Consult to Cardiology Stat Comment: Consulting Provider: Jensen Gastelum 04/15/25 00:48 Referral Physical Therapy Routine Comment: Physician Instructions: 04/15/25 02:33 Referral [facility]ama Routine Comment: [facility] Referral - Knowledge Deficit Routine Comment: Positive screening for knowledge deficit needs. 04/15/25 03:39 Referral Respiratory Therapy Routine Comment: Attending Provider on DC: Doug Bull DO Discharging Provider: Doug Bull DO DS: Diagnosis Problem List Completed Was Problem List Reviewed/Reconciled?: Yes Hospital Course Hospital Course Hospital course: 59-year-old female with a PMH of ESRD on dialysis 3 times a week diabetes, hypertension, asthma who was admitted to [facility] on 04/15/2025 for Acute hypoxic respiratory failure and hypertensive emergency. Pt arrived to the ED with a blood pressure of SBP 220, saturating well on room air, afebrile. Pt was worked up and was found to have WBC of 7.6, Hgb 5.1, BNP 3000. Pt had EKG done which showed NSR. CXR showed vascular congestion with signs of pulmonary edema.Patient received nitroglycerin topical due to significant high blood pressure, SBP consistently > 220. Medicine was consulted and pt was admitted to the floors. While on the floors, pt was seen by cardiology, Dr. Gastelum, who did not recommend repeat echo at the time due to patient's hx of pericardial effusion. Nephrology was consulted, Dr. Alas, who continued pt's dialysis sessions. Pt's BP was slowly augmented due to hypertensive emergency and had appropriately improved safe for discharge. Pt was then discharged with the following instructions. Discharge Instructions: - Follow up with you doctor within one week from discharge - Follow up with your heart doctor within one week from discharge - We added a new blood pressure medicine called clonidine 0.1mg orally two times a day, Avoid skipping any dose is it may cause worsening of blood pressure - In case of worsening of your symptoms please return to the ED as soon as possible - Use Other meds as precribed Problem List: #Acute hypoxic respiratory failure #Fluid overload #Hx of pericardial effusion #Hypertensive emergency #Hypertension #ESRD (M/W/F) #Asthma Discharge summary was reviewed with my attending Dr. Ml Corea, PGY-2 Time Spent with Patient Time attestation: Total time spent providing and/or coordinating discharge services: Time spent: Greater than 30 minutes Exam Vital Signs Temp Pulse Resp BP Pulse Ox O2 Del Method O2 Flow Rate 97.9 F 74 19 162/78 H 97 Room Air 2 04/16/25 12:00 04/16/25 14:45 04/16/25 12:00 04/16/25 14:45 04/16/25 12:00 04/16/25 12:00 04/16/25 06:26 Narrative Exam General: Obese lady. Awake and in no acute distress. Conversational. Neurologic: GCS 15. Alert and oriented x3, no gross neurological deficit, and patient able to move all 4 extremities. HEENT: Normocephalic, atraumatic, mucous membranes moist. Pupils reactive to light. Heart: Regular rate and rhythm, normal S1 and S2, no murmurs. Lungs: Clear to auscultation bilaterally with no wheezing or crackles. Abdomen: Soft, nondistended, nontender, positive bowel sounds. No guarding or rebound tenderness. Extremities: Left upper arm fistula. No edema. 2+ radial and dorsalis pedis pulses bilaterally. Skin: Warm. Dry. No rash or ecchymoses. Discharge Plan Plan Patient Disposition: HOME (Self Care) Patient condition on transfer: Stable Care Plan Goals: Discharge Instructions: - Follow up with you doctor within one week from discharge - Follow up with your heart doctor within one week from discharge - We added a new blood pressure medicine called clonidine 0.1mg orally two times a day, Avoid skipping any dose is it may cause worsening of blood pressure - In case of worsening of your symptoms please return to the ED as soon as possible - Use Other meds as precribed Prescriptions/Referrals Prescriptions/Med Rec: New clonidine HCl 0.1 mg Tablet 0.1 mg PO BID 14 Days Qty: 28 0RF Continued calcium acetate 667 mg Tablet 1,334 mg PO TIDWM ferrous sulfate [iron] 325 mg (65 mg iron) Tablet 325 mg PO QDAY labetalol 200 mg Tablet 200 mg PO BID hydralazine 25 mg Tablet 25 mg PO TID nifedipine 60 mg Tablet Extended Release 60 mg PO QDAY losartan 100 mg Tablet 100 mg PO QDAY cinacalcet 30 mg Tablet 30 mg PO QDAY latanoprost 0.005 % drops 1 drp OPHTHALMIC (EYE) BID Patient Comments: USE 1 DROP IN THE RIGHT EYE TWICE DAILY erythromycin 5 mg/gram (0.5 %) ointment 0.5 inch OPHTHALMIC (EYE) QID Patient Comments: APPLY 1/2 INCH IN THE AFFECTED EYE FOUR TIMES DAILY FOR INFECTION, start AFTER surgery insulin glargine [Lantus Solostar U-100 Insulin] 100 unit/mL (3 mL) insulin pen 5 unit SUBCUT .qhs Patient Comments: INJECT FIVE UNITS SUBCUTANEOUSLY EVERY DAY FOR DIABETES Discontinued ferrous sulfate 325 mg (65 mg iron) Tablet 325 mg PO QDAY Referrals: Daily Adams PA-C [Primary Care Provider] - Patient/Caregiver Discharge Instructions Discharge Activity: activity as tolerated Education Materials: Anemia and Kidney Disease, Coping with Heart Failure, ED Chronic Kidney Disease (CKD) Print Language: Icelandic Stand Alone Forms: [employer] Award Info., Patient Portal Info Letter Discharge Order Discharge Orders: Discharge (Routine); Ordered 04/16/25 Ordered By: Oscar Wilcox Quality Discharge Quality Measures VTE prophylaxis Attestestation MD Attestation I have discussed and was present for the essential components of the discharge history, physical examination, diagnosis, and discharge treatment plan with the resident. I agree with the patient's discharge care as documented by the resident and amended herein by me. Dennis Bull DO. The patient understood all discharge instructions, all questions were answered satisfactorily. The patient was instructed to return to the Emergency Department is symptoms worsened or persisted. Patient significantly improved on day of discharge after hemodialysis session. No indication of pericardial effusion or other dysfunction per cardiology, cleared to discharge home. Although this document has been carefully reviewed, there may still be some phonetic and other typographical errors. These errors are purely grammatical due to imperfections in the software program and should not be construed in any way to compromise the substance of the patient's medical care during this visit.
--- NOTE | 2025-04-16 17:57 | ESPR_ITS ---
RE: BEAN TRUONG : 1965 DATE OF SERVICE: 04/16/2025 SUBJECTIVE: The patient is a 59-year-old female with history of multiple medical problems of ESRD, on hemodialysis, diabetes, and hypertension, who was admitted to the hospital with worsening of shortness of breath and question of pericardial effusion. Bedside echo did not show any pericardial effusion that she had in the past. Clinically, she is not having any complaints. No chest pain or shortness of breath. OBJECTIVE: Vital Signs: Remained stable. Blood pressure is 160/70, pulse rate 70, respiratory rate 18, and temperature normal. Neck: Supple. No JVD. Lungs: Decreased breath sounds. No rales or rhonchi. Heart: S1 and S2 regular. Abdomen: Thin and soft. Extremities: Mild edema. ASSESSMENT: 1. Shortness of breath possibly due to Hfpef _. 2. End-stage renal disease, on hemodialysis. 3. History of pericardial effusion, requiring drainage. No recurrence of effusion. RECOMMENDATIONS: The patient is cardiac mariscal stable. DT: 16:20:14 TT: 17:50:00 Ref: [id number] - TID: [id number] MTDD
--- NOTE | 2025-04-17 06:57 | ESCONSULT_ITS ---
RE: BEAN TRUONG : 1965 DATE OF CONSULTATION: 04/15/2025 HISTORY OF PRESENT ILLNESS: This patient is a 59-year-old Romansh- speaking only woman with past medical history significant for type 2 diabetes for 20 years, hypertension, and ESRD, on dialysis since 03/2019, dialyzing every Friday, , and Friday at [facility], who presented to emergency room yesterday with increasing shortness of breath. The patient for 1 month has been having orthopnea and dyspnea on exertion. We have increased the number of dialysis treatments to 4 times a week for about a month now; however, she continues to come in with fluid overload. Finally, she went to emergency room in the morning of 04/15/2025 for shortness of breath. The patient was seen on dialysis in the afternoon and she was tolerating dialysis very well. We were aiming to remove around 3 L. The patient is also scheduled for today's echocardiogram to find out whether she has another bout of pericardial effusion. The patient last year had a large pericardial effusion, requiring pericardiocentesis of about 2 L. The patient also had a pericardial window during that time. PAST MEDICAL HISTORY: Type 2 diabetes, hypertension, proteinuria, ESRD, and porcelain gallbladder. PAST SURGICAL HISTORY: AV fistula placement and cholecystectomy. FAMILY HISTORY: Mother has diabetes with kidney failure. ALLERGIES: NO KNOWN DRUG ALLERGIES. CURRENT MEDICATIONS: 1. Calcium acetate 667 mg 2 tablets p.o. t.i.d. with meals. 2. Cinacalcet. 3. Clonidine 0.1 mg p.o. b.i.d. 4. Hydralazine 25 mg p.o. t.i.d. 5. Lantus 5 units subcutaneously at bedtime. 6. Labetalol 200 mg p.o. b.i.d. 7. Losartan 100 mg p.o. daily. 8. Nifedipine 60 mg p.o. daily. PHYSICAL EXAMINATION: VITAL SIGNS: Blood pressure of 167/78. HEENT: Anicteric sclerae. Normocephalic. NECK: Supple. JVD. CHEST AND LUNGS: Symmetric expansion. Clear breath sounds. CARDIAC: No rub. No murmur. ABDOMEN: Soft and nontender. EXTREMITIES: No edema. LABORATORY DATA: Hemoglobin 9.7, WBC 8400, and platelets 131,000. Sodium 138, potassium 5.2, CO2 of 25.7, BUN 49, creatinine 7.8, and glucose 196. Hemoglobin A1c is 7.1. Chest x-ray, mild CHF, slightly progressed compared to prior study. Moderate enlargement of cardiac contour with prominent vascular congestion and perihilar edema. ASSESSMENT: 1. End-stage renal disease. 2. Volume overload versus pericardial effusion. 3. Hypertension. 4. Type 2 diabetes. 5. Anemia of chronic kidney disease. PLAN: The patient is currently on dialysis and somewhat tolerating high fluid removal. We are waiting for the result of 2D echocardiogram to rule out pericardial effusion. If there is no pericardial effusion seen, then patient can be discharged any time to go back to her normal dialysis schedule. DT: 05:25:51 TT: 06:15:00 Ref: [id number] - TID: [id number] MTDD
== END 2025-04-16 18:39 | disposition home or self-care (01) | DRG 194 ==
LOC: SERX 21:09 → SERHOLD 22:48 → S3SX 04-15 01:49
PROVIDERS: Nurse Practitioner Primary Care; Admitting Provider Student in an Organized Health Care Education/Training Program; Emergency Provider Emergency Medicine; PCP Specialist; Visit Provider Student in an Organized Health Care Education/Training Program
DX: I13.2 Hypertensive heart and chronic kidney disease with heart failure and with stage 5 chronic kidney disease, or end stage renal disease (principal); N18.6 End stage renal disease; E11.22 Type 2 diabetes mellitus with diabetic chronic kidney disease; J45.909 Unspecified asthma, uncomplicated; D63.1 Anemia in chronic kidney disease; I50.9 Heart failure, unspecified; I16.1 Hypertensive emergency; Z66 Do not resuscitate; E78.5 Hyperlipidemia, unspecified; I31.39 Other pericardial effusion (noninflammatory); F41.9 Anxiety disorder, unspecified; J96.01 Acute respiratory failure with hypoxia; Z99.2 Dependence on renal dialysis
CPT/HCPCS: 36415; 71046; 80053; 80061; 83036; 83735; 83880; 84100; 84443; 84484; 85025; 85610; 85730; 87081; 87400; 87811; 93005; 93225; 93306; 97162; 99284; A9270; J0360; J1644; J1815; J2270; J2405

== ENCOUNTER → 2025-08-01 | Outpatient (CLI) | payer MEDICAID, SELFPAY ==
--- NOTE | 2025-08-01 17:00 | XR_ITS ---
EXAMINATION: PA lateral chest 2 views TECHNIQUE: Upright PA lateral chest 2 views Date and time: July,, 1710 hours, comparison April 14, 2025 INDICATIONS: Coughing beginning 2 weeks ago. FINDINGS: Early heart failure Mild to moderate enlargement left ventricle Prominent vascular congestion including central vascular engorgement. Early septal edema at the lung bases IMPRESSION: Early heart failure
== END | disposition home or self-care (01) ==
LOC: CDIM 16:56
PROVIDERS: Referring Provider Internal Medicine Nephrology; Visit Provider Internal Medicine Nephrology
DX: I50.9 Heart failure, unspecified (principal)
CPT/HCPCS: 71046